=== PATIENT | male | born 1950 | race Caucasian/White ===

== ENCOUNTER 2021-06-07 13:59 | Emergency (ER) | payer MEDICARE ==
[~2021-06-07] VITALS: Ht 177.8 cm; Wt 198.0 kg
[2021-06-07 13:59] VITALS: BP 122/74
[2021-06-07] MEDS ORDERED: HYDR12.55 PO (14:27)
[2021-06-07] MEDS ORDERED: RAMI1CAP26 PO (14:27)
[2021-06-07] MEDS ORDERED: LAMI1TAB9 PO (14:27)
[2021-06-07] MEDS ORDERED: LIPI10TA PO (14:29)
[2021-06-07] MEDS ORDERED: DILT30TA PO (14:29)
[2021-06-07] MEDS ORDERED: LIDOCAINE 1% MDV 20ML VIAL SC ONE (17:05)
[2021-06-07] MEDS ORDERED: NEOSPORIN OINT 0.9 GM PKT TOP ONE (17:05)
[2021-06-07] MEDS ORDERED: BOOSTRIX/ADACEL VACCINE (DIPHTH/PERTUSS/ACELL/TETANUS) 0.5ML SYR IM ONE (17:05)
[2021-06-07] MEDS ORDERED: CEPH500C PO (19:03)
[2021-06-07] MEDS ORDERED: CEPHALEXIN 500 MG CAP PO ONE (19:10)
== END 2021-06-07 19:32 | disposition home or self-care (01) ==
LOC: M ED 13:59
DX: S61.412A Laceration without foreign body of left hand, initial encounter (principal); S61.411A Laceration without foreign body of right hand, initial encounter; W11.XXXA Fall on and from ladder, initial encounter; W26.8XXA Contact with other sharp object(s), not elsewhere classified, initial encounter; Y92.9 Unspecified place or not applicable; Y93.9 Activity, unspecified; Y99.9 Unspecified external cause status; Z88.8 Allergy status to other drugs, medicaments and biological substances